=== PATIENT | female | born 1995 | race Caucasian/White ===

== ENCOUNTER 2024-01-02 16:24 | Emergency (ER) | payer BC, MEDICAID, SELFPAY ==
[2024-01-02 16:44] VITALS: BP 116/77; PULSE 113; RESP 16; TEMP 39.3; O2SAT 96; BMI 25.6
[2024-01-02 18:13] LABS: Basophils % 0.1 %; Eosinophils % 0.1 %; Hematocrit 41.1 % (36-47); Lymphocytes # 0.6 10^3/uL (0.8-4.8); Lymphocytes % 6.3 %; Mean Corpuscular HGB Conc 32.8 g/dL (30-55); Mean Corpuscular Hemoglobin 31.5 pg (27-33); Mean Platelet Volume 9.9 fL (7.4-10.4); Monocytes # 0.6 10^3/uL (0.2-0.9); Monocytes % 6.4 %; Neutrophils # 8.26 10^3/uL (1.8-7.7); Neutrophils % 86.8 %; Nucleated Red Blood Cells % 0 %; Platelet Count 142 10^3/cmm (157-399); Red Blood Count 4.28 10^6/uL (3.85-5.65); Red Cell Distribution Width 13.2 % (12.1-15.1); White Blood Count 9.52 10^3/uL (3.29-11.43)
--- NOTE | 2024-01-02 18:34 | ED_ITS ---
HPI - General Adult 2 General: Chief complaint: General Medical Stated complaint: F,h,chillis Time Seen by Provider: 01/02/24 18:26 History of Present Illness: Patient is a headache do not go away, fever chills hot flashes, kidney pain low back pain frequency with urination, denies any pain in her mouth however she did have a tooth pulled approximately 1 week ago which she said the tooth and jaw is not giving her any problems. Patient has been alternating Tylenol and ibuprofen. Patient arrived with a pulse of 113 and a temperature 102.8. Patient says she just feels bad all over. Related Data Previous Rx's Medication Instructions Recorded ciprofloxacin HCl 500 mg tablet 500 mg PO Q12H #20 tabs 01/02/24 Allergies Allergy/AdvReac Type Severity Reaction Status Date / Time No Known Allergies Allergy Verified 01/02/24 16:51 Review of Systems 2 General: Reports: 10 or more systems reviewed and unremarkable except in HPI and below [facility] 2 Female Reproductive History: Date of last menstrual period: 12/22/23 Physical Exam 2 Const: COMMON NORMALS: no acute distress, average body habitus, patient oriented x3, no limitations, healthy appearing, alert and well nourished HENMT: COMMON NORMALS: normocephalic, atraumatic, hearing grossly normal bilaterally, external ears normal, Normal external nose present and moist oral mucous membranes HEAD & SCALP: normocephalic and atraumatic NOSE: Normal external nose present EXTERNAL EAR: Yes external ears normal Neck/C-Spine: COMMON NORMALS: full ROM, no lymphadenopathy, supple, no meningeal signs, no JVD and Thyroid normal THYROID: Thyroid normal Chest: COMMONS NORMALS: normal inspection of the chest and normal palpation of entire chest wall Resp: COMMON NORMALS: normal respiratory effort, No retractions, No use of accessory muscles and clear to auscultation bilaterally AUSCULTATION: clear to auscultation bilaterally Cardio: COMMON NORMALS: no JVD, regular rate, regular rhythm, S1 normal heart sound present, S2 normal heart sound present, No gallops present (Cardio), No clicks present (Cardio), No murmurs present (Cardio) and No rub (Cardio) R ATE: regular rate RHYTHM: regular rhythm HEART SOUNDS: S1 normal heart sound present and S2 normal heart sound present GI: COMMON NORMALS: Normal to inspection, nondistended, normoactive bowel sounds present, Soft to palpation, non-tender, No hepatosplenomegaly present and no masses PALPATION: Yes Soft to palpation and Yes No hepatosplenomegaly present Neuro: COMMON NORMALS: patient oriented x3 SENSORIUM/ORIENTATION: Yes alert MENINGEAL SIGNS: Yes no meningeal signs Course 2 Vital Signs: Vital signs: Vital Signs Temperature 102.8 F H 01/02/24 16:44 Pulse Rate 113 H 01/02/24 16:44 Respiratory Rate 16 01/02/24 16:44 Blood Pressure 110/72 01/02/24 18:57 Pulse Oximetry 95 01/02/24 18:57 Oxygen Delivery Me thod Room Air 01/02/24 16:44 MDM - General Adult Medical Decision Making Patient lab work that revealed a urinary tract infection, patient was given Toradol, [place], Cipro will be discharged home on Cipro. Patient is to follow-up with her PCP within 7 days. Medical Records I reviewed the patient's medical records. Lab Data I reviewed the patient's lab results. 01/02/24 17:56 01/02/24 17:56 Laboratory Results WBC 9.52 10^3/uL (3.29-11.43) 01/02/24 17:56 RBC 4.28 10^6/uL (3.85-5.65) 01/02/24 17:56 Hgb 13.50 g/dL (11.27-16.99) 01/02/24 17:56 Hct 41.1 % (36-47) 01/02/24 17:56 MCV 96.0 fl (85-98) 01/02/24 17:56 MCH 31.5 pg (27-33) 01/02/24 17:56 MCHC 32.8 g/dL (30-55) 01/02/24 17:56 RDW 13.2 % (12.1-15.1) 01/02/24 17:56 Plt Count 142 10^3/cmm (157-399) L 01/02/24 17:56 MPV 9.9 fL (7.4-10.4) 01/02/24 17:56 Neut % (Auto) 86.8 % 01/02/24 17:56 Lymph % (Auto) 6.3 % 01/02/24 17:56 [place] % (Auto) 6.4 % 01/02/24 17:56 Eos % (Auto) 0.1 % 01/02/24 17:56 Baso % (Auto) 0.1 % 01/02/24 17:56 Neut # (Auto) 8.26 10^3/uL (1.8-7.7) H 01/02/24 17:56 Lymph # (Auto) 0.6 10^3/uL (0.8-4.8) L 01/02/24 17:56 [place] # (Auto) 0.6 10^3/uL (0.2-0.9) 01/02/24 17:56 Eos # (Auto) 0.0 10^3/uL (0.0-0.8) 01/02/24 17:56 Baso # (Auto) 0.0 10^3/uL (0.0-0.1) 01/02/24 17:56 Nucleated RBC % (auto) 0 % 01/02/24 17:56 Nucleated RBCs # 0.0 /100WBC 01/02/24 17:56 Sodium 132 mmol/L (136-145) L 01/02/24 17:56 Potassium 4.1 mmol/L (3.5-5.1) 01/02/24 17:56 Chloride 98 mmol/L (98-107) 01/02/24 17:56 Carbon Dioxide 24 mmol/L (22-29) 01/02/24 17:56 Anion Gap 14.1 (5-19) 01/02/24 17:56 BUN 9 mg/dL (6-20) 01/02/24 17:56 Creatinine 0.7 mg/dL (0.5-0.9) 01/02/24 17:56 GFR Calculation 98.3 mL/min (90-130) 01/02/24 17:56 Glucose 105 mg/dL (65-115) 01/02/24 17:56 Calculated Osmolality 273 mOsm/kg (285-295) L 01/02/24 17:56 Calcium 8.8 mg/dL (8.5-10.5) 01/02/24 17:56 Total Bilirubin 0.6 mg/dL (0.15-1.2) 01/02/24 17:56 AST 27 U/L (0-32) 01/02/24 17:56 ALT 35 U/L (0-33) H 01/02/24 17:56 Alkaline Phosphatase 117 U/L (35-105) H 01/02/24 17:56 Total Protein 7.3 g/dL (6.6-8.7) 01/02/24 17:56 Albumin 4.2 g/dL (3.5-5.2) 01/02/24 17:56 Globulin 3.1 g/dL (1.3-4.6) 01/02/24 17:56 Urine Color [place] (Yellow) A 01/02/24 18:52 Urine Appearance Turbid (CLEAR) A 01/02/24 18:52 Urine pH 5.5 (5-7) 01/02/24 18:52 Ur Specific [place] 1.016 (1.005-1.030) 01/02/24 18:52 Urine Protein 2+ (Negative) A 01/02/24 18:52 Urine Glucose (UA) Negative (Normal) 01/02/24 18:52 Urine Ketones 2+ (Negative) H 01/02/24 18:52 Urine Blood 2+ (Negative) A 01/02/24 18:52 Urine Nitrate Positive (Negative) A 01/02/24 18:52 Urine Bilirubin 1+ (Negative) H 01/02/24 18:52 Urine Urobilinogen 1.0 mg/dL (Negative) 01/02/24 18:52 Ur Leukocyte Esterase 3+ (Negative) A 01/02/24 18:52 Urine RBC 6-10 /hpf (0-2) 01/02/24 18:52 Urine WBC >100 /hpf (0-5) H 01/02/24 18:52 Ur Squamous Epith Cells 11-20 /hpf (0-5) 01/02/24 18:52 Amorphous Sediment Not Reportable 01/02/24 18:52 Urine Bacteria 4+ /hpf (NONE) H 01/02/24 18:52 Hyaline Casts 4.52 /lpf 01/02/24 18:52 Coronavirus (PCR) Negative (Negative) 01/02/24 18:02 Influenza A (PCR) Negative (Negative) 01/02/24 18:02 Influenza Type B (PCR) Negative (Negative) 01/02/24 18:02 RSV (PCR) Negative (Negative) 01/02/24 18:02 No radiology studies performed this visit Discharge Plan Discharge Patient Disposition: Home Clinical Impression: Infection, kidney Condition: Stable Prescriptions: New ciprofloxacin HCl 500 mg tablet 500 mg PO Q12H Qty: 20 0RF Discharge Orders: Discharge ED (Routine); Ordered 01/02/24 Ordered By: Edgar Garzon Patient Instructions: Kidney Infection (ED) Activity Restrictions/Additional Instructions: Your evaluation ER showed you have a kidney infection. You were given Cipro antibiotics in the ER and a prescription of these was sent to your pharmacy. Please fill this prescription and take these as directed. Please follow-up with your family practice physician within the next 7 days for further evaluation and treatment. Coding Level of Care Code ED [employer] for Hector Bueno
[2024-01-02 18:38] LABS: Alanine Aminotransferase 35 U/L (0-33); Albumin Level 4.2 g/dL (3.5-5.2); Alkaline Phosphatase 117 U/L (35-105); Blood Urea Nitrogen 9 mg/dL (6-20); Calcium 8.8 mg/dL (8.5-10.5); Carbon Dioxide 24 mmol/L (22-29); Chloride 98 mmol/L (98-107); Creatinine Clr Calc Pharmacy 102.8893; Globulin 3.1 g/dL (1.3-4.6); Glomerular Filtration Rate 98.3 mL/min (90-130); Glucose 105 mg/dL (65-115); Osmolality Calculated 273 mOsm/kg (285-295); Sodium 132 mmol/L (136-145); Total Bilirubin 0.6 mg/dL (0.15-1.2); Total Protein 7.3 g/dL (6.6-8.7)
[2024-01-02 18:43] LABS: Anion Gap 14.1 (5-19); Aspartate Amino Transferase 27 U/L (0-32); Potassium 4.1 mmol/L (3.5-5.1)
[2024-01-02 18:57] VITALS: BP 110/72; O2SAT 95
[2024-01-02] MEDS: ketorolac 10 mg Tablet PO (19:03)
[2024-01-02] MEDS: HYDROcodone-acetaminophen 5-325 mg Tablet 1 TAB PO (19:03)
[2024-01-02 19:14] LABS: Bilirubin Urine 1+ (Negative); Blood Urine 2+ (Negative); Glucose Urine UA Negative (Normal); Ketones Urine 2+ (Negative); Leukocyte Esterase Urine 3+ (Negative); Nitrate Urine Positive (Negative); Protein Urine 2+ (Negative); Specific Gravity, Urine 1.016 (1.005-1.030); Urine Appearance Turbid (CLEAR); pH Urine 5.5 (5-7)
[2024-01-02 19:16] LABS: Add Urine Microscopic? YES; Bacteria Urine 4+ /hpf; Hyaline Casts Urine 4.52 /lpf; Universal Test for UA Present (0); WBC Urine >100 /hpf (0-5)
[2024-01-02 19:32] LABS: Add Urine Culture? No; Urine Color Orange (Yellow)
[2024-01-02 19:50] LABS: Covid PCR NEGATIVE (Negative); Influenza A NEGATIVE (Negative); Influenza B NEGATIVE (Negative); Respiratory Syncytial Virus Ce NEGATIVE (Negative)
[2024-01-02] MEDS: ciprofloxacin 500 mg Tablet PO (20:13)
[2024-01-02 20:38] VITALS: BP 100/59; PULSE 96; RESP 16; RESP 18; O2SAT 98
== END 2024-01-02 20:40 | disposition home or self-care (01) ==
PROVIDERS: Family Medicine; Emergency Provider Emergency Medicine
DX: N15.9 Renal tubulo-interstitial disease, unspecified (principal); Z11.52 Encounter for screening for COVID-19
CPT/HCPCS: 0241U; 36415; 80053; 81001; 85025; 99283

== ENCOUNTER 2024-01-04 02:17 | Emergency (ER) | payer BC, MEDICAID, SELFPAY ==
[2024-01-04 02:22] VITALS: BP 110/78; PULSE 89; RESP 16; TEMP 36.8; O2SAT 99; BMI 26.4
--- NOTE | 2024-01-04 02:55 | CTR_ITS ---
PROCEDURE INFORMATION: Exam: CT Head Without Contrast Exam date and time: 01/04/2024 3:17 AM Age: 28 years old Clinical indication: Pain; Headache TECHNIQUE: Imaging protocol: Computed tomography of the head without contrast. Radiation optimization: All CT scans at this facility use at least one of these dose optimization techniques: automated exposure control; mA and/or kV adjustment per patient size (includes targeted exams where dose is matched to clinical indication); or iterative reconstruction. COMPARISON: No relevant prior studies available. RADIATION DOSE METRICS: Total DLP (mGy-cm): 296 FINDINGS: Brain: No acute intracranial hemorrhage or mass effect. No definite acute infarct by CT. Cerebral ventricles: Ventricle size is normal for age. Paranasal sinuses: Included paranasal sinuses are essentially clear. Mastoid air cells: No significant acute finding. Bones: No definite acute skull fracture. Soft tissues: No significant acute finding. CT/CT head wo con* [id number] IMPRESSION: 1. No acute intracranial hemorrhage or mass effect. 2. Other findings discussed above.
--- NOTE | 2024-01-04 02:56 | CTR_ITS ---
PROCEDURE INFORMATION: Exam: CT Abdomen And Pelvis Without Contrast Exam date and time: 01/04/2024 3:21 AM Age: 28 years old Clinical indication: Abdominal pain; Prior surgery; Surgery date: 6+ months; Surgery type: Choley, tubal; Additional info: R flank pain , UTI TECHNIQUE: Imaging protocol: Computed tomography of the abdomen and pelvis without contrast. Radiation optimization: All CT scans at this facility use at least one of these dose optimization techniques: automated exposure control; mA and/or kV adjustment per patient size (includes targeted exams where dose is matched to clinical indication); or iterative reconstruction. COMPARISON: No relevant prior studies available. RADIATION DOSE METRICS: Total DLP (mGy-cm): 391.36 FINDINGS: Liver: Normal. No mass. Gallbladder and biliary ducts: Status post cholecystectomy. Pancreas: Normal. No ductal dilation. Spleen: Normal. No splenomegaly. Adrenal glands: Normal. No mass. Kidneys and ureters: Faint hyperattenuation seen within the renal medullary pyramids, findings compatible benign renal medullary pyramid white sign. Mild medullary nephrocalcinosis cannot entirely. Stomach and bowel: Unremarkable. No obstruction. No mucosal thickening. Appendix: No evidence of appendicitis. Intraperitoneal space: Unremarkable. No free air. No significant fluid collection. Vasculature: Unremarkable. No abdominal aortic aneurysm. Lymph nodes: Unremarkable. No enlarged lymph nodes. Urinary bladder: Unremarkable as visualized. Reproductive: Unremarkable as visualized. Bones/joints: Unremarkable. No acute fracture. Soft tissues: Hazy opacities present in the right perinephric fascia, findings that represent inflammatory changes and pyelonephritis. Other findings: Tiny volume of low-attenuation fluid is seen in the dependent portions pelvis likely commensurate patient's age and menstrual status. CT/CT kidney stone 21302 IMPRESSION: 1. Hazy opacities are seen in the right perinephric fascia, finding that may represent inflammatory changes and pyelonephritis. 2. Subtle hyperattenuation renal medullary pyramids bilaterally most probably represents a benign renal medullary pyramid white sign. Mild renal medullary nephrocalcinosis cannot be entirely excluded. 3. Tiny volume fluid in the cul-de-sac likely commensurate patient's age and menstrual status.
[2024-01-04 03:02] LABS: Basophils % 0.2 %; Eosinophils # 0.1 10^3/uL (0.0-0.8); Eosinophils % 1.1 %; Hematocrit 39.9 % (36-47); Lymphocytes # 0.9 10^3/uL (0.8-4.8); Lymphocytes % 6.8 %; Mean Corpuscular HGB Conc 32.6 g/dL (30-55); Mean Corpuscular Hemoglobin 31.4 pg (27-33); Mean Corpuscular Volume 96.4 fl (85-98); Mean Platelet Volume 9.7 fL (7.4-10.4); Monocytes # 1.4 10^3/uL (0.2-0.9); Monocytes % 10.5 %; Neutrophils # 10.61 10^3/uL (1.8-7.7); Neutrophils % 81.1 %; Nucleated Red Blood Cells % 0 %; Platelet Count 135 10^3/cmm (157-399); Red Blood Count 4.14 10^6/uL (3.85-5.65); Red Cell Distribution Width 13.3 % (12.1-15.1); White Blood Count 13.08 10^3/uL (3.29-11.43)
[2024-01-04 03:09] LABS: HCG, Serum Qual Negative (Negative)
[2024-01-04 03:14] LABS: Alanine Aminotransferase 32 U/L (0-33); Albumin Level 3.9 g/dL (3.5-5.2); Alkaline Phosphatase 145 U/L (35-105); Anion Gap 15.7 (5-19); Aspartate Amino Transferase 22 U/L (0-32); Blood Urea Nitrogen 11 mg/dL (6-20); C Reactive Protein 315.3 mg/L (0.0-4.9); Calcium 9.1 mg/dL (8.5-10.5); Carbon Dioxide 22 mmol/L (22-29); Chloride 100 mmol/L (98-107); Creatinine Clr Calc Pharmacy 87.7881; Globulin 3.6 g/dL (1.3-4.6); Glomerular Filtration Rate 84.2 mL/min (90-130); Glucose 101 mg/dL (65-115); Lipase 16 U/L (13-60); Magnesium 2.1 mg/dL (1.7-2.3); Osmolality Calculated 278 mOsm/kg (285-295); Potassium 3.7 mmol/L (3.5-5.1); Sodium 134 mmol/L (136-145); Total Bilirubin 0.9 mg/dL (0.15-1.2); Total Protein 7.5 g/dL (6.6-8.7)
[2024-01-04 03:15] LABS: Lactic Sepsis W/Reflex 0.9 mmol/L (0.5-2.2)
[2024-01-04] MEDS: ondansetron 2 mg/ML SDV 2 mL 4 MG IVP (03:17)
[2024-01-04] MEDS: cefTRIAXone 1,000 mg SDV 1000 MG IVP (03:17)
[2024-01-04] MEDS: ketorolac 30 mg/mL INJ IVP (03:18)
[2024-01-04] MEDS: morphine 4 mg/mL SDV 1 mL IVP ×2 (03:18→04:38)
[2024-01-04] MEDS: sodium chloride 0.9% 1,000 ML 999 ML IV ×2 (03:18→04:38)
[2024-01-04 04:05] VITALS: BP 104/57; PULSE 78; O2SAT 96
[2024-01-04 04:46] LABS: Bilirubin Urine 1+ (Negative); Blood Urine Trace (Negative); Glucose Urine UA Negative (Normal); Ketones Urine 3+ (Negative); Leukocyte Esterase Urine 2+ (Negative); Nitrate Urine Negative (Negative); Protein Urine 2+ (Negative); Specific Gravity, Urine 1.023 (1.005-1.030); Urine Appearance Cloudy (CLEAR); Urine Color Dark Yellow (Yellow); pH Urine 5.5 (5-7)
--- NOTE | 2024-01-04 04:50 | ED_ITS ---
HPI - Headache 2 General: Chief Complaint: Headache Stated Complaint: severe headache 4 days+ Time Seen by Provider: 01/04/24 02:42 History of Present Illness: 28-year-old female seen yesterday for fl ank pain. She was diagnosed with pyelonephritis, and has been on antibiotics. She comes in complaining of headache, continued right flank pain, and significant nausea. She has not been able to drink much fluid, or eat anything. She says this is the worst headache she has ever had. Related Data Previous Rx's Medication Instructions Recorded ciprofloxacin HCl 500 mg tablet 500 mg PO Q12H #20 tabs 01/02/24 hydrocodone 5 mg-acetaminophen 325 1 tab PO Q8H PRN pain #7 tabs 01/04/24 mg tablet ketorolac 10 mg tablet 10 mg PO TID PRN pain #10 tabs 01/04/24 ondansetron 4 mg disintegrating 4 mg PO Q6H PRN nausea and 01/04/24 tablet vomiting #14 tabs Allergies Allergy/AdvReac Type Severity Reaction Status Date / Time No Known Allergies Allergy Verified 01/02/24 16:51 Physical Exam 2 Const: GENERAL APPEARANCE: cooperative and ill appearing (Mildly); not frail appearing HENMT: COMMON NORMALS: normocephalic, atraumatic and Normal external nose present HEAD & SCALP: normocephalic and atraumatic FACE & SINUS: normal facial exam and face symmetric NOSE: Normal external nose present Eye: COMMON NORMALS: Equal, round and reactive pupils present and EOMs intact bilaterally PUPIL: Yes Equal, round and reactive pupils present Neck/C-Spine: GENERAL: Yes trachea midline Chest: CHEST: Yes Symmetrical chest wall rise Resp: COMMON NORMALS: normal respiratory effort, No retractions, No use of accessory muscles and clear to auscultation bilaterally AUSCULTATION: clear to auscultation bilaterally Cardio: COMMON NORMALS: regular rate and regular rhythm RATE: regular rate RHYTHM: regular rhythm GI: COMMON NORMALS: Normal to inspection, nondistended, normoactive bowel sounds present : BLADDER/KIDNEY EXAM: Yes CVA tenderness on the right Back/Pelvis: GENERAL BACK: Yes CVA tenderness Extremity: COMMON NORMALS: no pedal edema Neuro: GUERO COMA SCALE: document GCS findings Guero coma scale eye opening: Spontaneous [place] coma scale verbal response: Orientated Guero coma scale motor response: Obey commands [place] coma scale total score: 15 S ENSORY EXAM: Yes extremities (intact) Psych: COMMON NORMALS: speech normal SPEECH: Yes normal speech Skin: COMMON NORMALS: no rashes or lesions noted GENERAL SKIN EXAM: no rashes or lesions noted Course 2 Vital Signs: Vital signs: Vital Signs Temperature 98.3 F 01/04/24 02:22 Pulse Rate 86 01/04/24 05:19 Respiratory Rate 16 01/04/24 02:22 Blood Pressure 104/54 01/04/24 05:19 Pulse Oximetry 97 01/04/24 05:19 Oxygen Delivery Me thod Room Air 01/04/24 02:22 MDM - Headache Medical Decision Making White blood cell count is up to 13. CRP is 315 which is impressive. Platelet count 135. Lactic acid is 0.9. Lipase is normal. Urinalysis is slightly improved from yesterday. She has received 2 L of IV fluid here, 1 g of Rocephin. Morphine and Toradol. Zofran. She is feeling improved. Head CT is negative. Abdominal CT shows hazy opacities in the right perinephric fascia representing inflammatory changes and pyelonephritis. Her creatinine is 0.8. With improvement in her symptoms, she will be allowed discharge. She will continue her antibiotics, and we will give her symptom control medication with antiemetics, and pain medication. She is encouraged to hydrate orally. Lab Data 01/04/24 02:55 01/04/24 02:[address] 01/04/24 02:55 IMPRESSION: 1. No acute intracranial hemorrhage or mass effect. 2. Other findings discussed above. Abdomen/Pelvis CT 01/04/24 02:56 IMPRESSION: 1. Hazy opacities are seen in the right perinephric fascia, finding that may represent inflammatory changes and pyelonephritis. 2. Subtle hyperattenuation renal medullary pyramids bilaterally most probably represents a benign renal medullary pyramid white sign. Mild renal medullary nephrocalcinosis cannot be entirely excluded. 3. Tiny volume fluid in the cul-de-sac likely commensurate patient's age and menstrual status. Laboratory Results WBC 13.08 10^3/uL (3.29-11.43) H 01/04/24 02:55 RBC 4.14 10^6/uL (3.85-5.65) 01/04/24 02:55 Hgb 13.00 g/dL (11.27-16.99) 01/04/24 02:55 Hct 39.9 % (36-47) 01/04/24 02:55 MCV 96.4 fl (85-98) 01/04/24 02:55 MCH 31.4 pg (27-33) 01/04/24 02:55 MCHC 32.6 g/dL (30-55) 01/04/24 02:55 RDW 13.3 % (12.1-15.1) 01/04/24 02:55 Plt Count 135 10^3/cmm (157-399) L 01/04/24 02:55 MPV 9.7 fL (7.4-10.4) 01/04/24 02:55 Neut % (Auto) 81.1 % 01/04/24 02:55 Lymph % (Auto) 6.8 % 01/04/24 02:55 [place] % (Auto) 10.5 % 01/04/24 02:55 Eos % (Auto) 1.1 % 01/04/24 02:55 Baso % (Auto) 0.2 % 01/04/24 02:55 Neut # (Auto) 10.61 10^3/uL (1.8-7.7) H 01/04/24 02:55 Lymph # (Auto) 0.9 10^3/uL (0.8-4.8) 01/04/24 02:55 [place] # (Auto) 1.4 10^3/uL (0.2-0.9) H 01/04/24 02:55 Eos # (Auto) 0.1 10^3/uL (0.0-0.8) 01/04/24 02:55 Baso # (Auto) 0.0 10^3/uL (0.0-0.1) 01/04/24 02:55 Nucleated RBC % (auto) 0 % 01/04/24 02:55 Nucleated RBCs # 0.0 /100WBC 01/04/24 02:55 Sodium 134 mmol/L (136-145) L 01/04/24 02:55 Potassium 3.7 mmol/L (3.5-5.1) 01/04/24 02:55 Chloride 100 mmol/L (98-107) 01/04/24 02:55 Carbon Dioxide 22 mmol/L (22-29) 01/04/24 02:55 Anion Gap 15.7 (5-19) 01/04/24 02:55 BUN 11 mg/dL (6-20) 01/04/24 02:55 Creatinine 0.8 mg/dL (0.5-0.9) 01/04/24 02:55 GFR Calculation 84.2 mL/min (90-130) L 01/04/24 02:55 Glucose 101 mg/dL (65-115) 01/04/24 02:55 Calculated Osmolality 278 mOsm/kg (285-295) L 01/04/24 02:55 Lactic Acid 0.9 mmol/L (0.5-2.2) 01/04/24 02:55 Calcium 9.1 mg/dL (8.5-10.5) 01/04/24 02:55 Magnesium 2.1 mg/dL (1.7-2.3) 01/04/24 02:55 Total Bilirubin 0.9 mg/dL (0.15-1.2) 01/04/24 02:55 AST 22 U/L (0-32) 01/04/24 02:55 ALT 32 U/L (0-33) 01/04/24 02:55 Alkaline Phosphatase 145 U/L (35-105) H 01/04/24 02:55 C-Reactive Protein 315.3 mg/L (0.0-4.9) H 01/04/24 02:55 Total Protein 7.5 g/dL (6.6-8.7) 01/04/24 02:55 Albumin 3.9 g/dL (3.5-5.2) 01/04/24 02:55 Globulin 3.6 g/dL (1.3-4.6) 01/04/24 02:55 Lipase 16 U/L (13-60) 01/04/24 02:55 HCG, Qual Negative (Negative) 01/04/24 02:55 Urine Color Dark yellow (Yellow) A 01/04/24 04:30 Urine Appearance Cloudy (CLEAR) A 01/04/24 04:30 Urine pH 5.5 (5-7) 01/04/24 04:30 Ur Specific [place] 1.023 (1.005-1.030) 01/04/24 04:30 Urine Protein 2+ (Negative) A 01/04/24 04:30 Urine Glucose (UA) Negative (Normal) 01/04/24 04:30 Urine Ketones 3+ (Negative) H 01/04/24 04:30 Urine Blood Trace (Negative) A 01/04/24 04:30 Urine Nitrate Negative (Negative) 01/04/24 04:30 Urine Bilirubin 1+ (Negative) H 01/04/24 04:30 Urine Urobilinogen 4.0 mg/dL (Negative) H 01/04/24 04:30 Ur Leukocyte Esterase 2+ (Negative) A 01/04/24 04:30 Urine RBC 6-10 /hpf (0-2) 01/04/24 04:30 Urine WBC 51-100 /hpf (0-5) H 01/04/24 04:30 Ur Squamous Epith Cells 21-50 /hpf (0-5) 01/04/24 04:30 Amorphous Sediment Not Reportable 01/04/24 04:30 Urine Bacteria 4+ /hpf (NONE) H 01/04/24 04:30 Hyaline Casts 3.30 /lpf 01/04/24 04:30 All radiology interpretation(s) finalized by discharge Discharge Plan Discharge Patient Disposition: Home Clinical Impression: Pyelonephritis, Headache Condition: Stable Prescriptions: New hydrocodone-acetaminophen 5-325 mg tablet 1 tab PO Q8H PRN (Reason: pain) Qty: 7 0RF ketorolac 10 mg tablet 10 mg PO TID PRN (Reason: pain) Qty: 10 0RF ondansetron 4 mg tablet,disintegrating 4 mg PO Q6H PRN (Reason: nausea and vomiting) Qty: 14 0RF No Action ciprofloxacin HCl 500 mg tablet 500 mg PO Q12H Qty: 20 0RF Discharge Orders: Discharge ED (Routine); Ordered 01/04/24 Ordered By: Abdullahi Rico Patient Instructions: Kidney Infection (ED), Acute Headache (ED), Opioid Safety, Pain Management Activity Restrictions/Additional Instructions: Take nausea medication (Zofran) scheduled every 4 hours while awake for the first 24 hours, then you may take it as you needed following that. You may alternate prescribed pain medication for discomfort. Continue your antibiotic. Aggressively hydrate by drinking fluids for the next 48 hours. Return for worsening pain despite treatment, fever despite antibiotics, vomiting liquids or medications, any other concerning symptoms. Stand Alone Forms: Work/School Release Coding Level of Care Code ED Engagement Executive for Hector Bueno
[2024-01-04 04:51] LABS: Add Urine Microscopic? YES; Bacteria Urine 4+ /hpf; Squamous Epithelial Cell Urine 21-50 /hpf (0-5); WBC Urine 51-100 /hpf (0-5)
[2024-01-04 04:52] LABS: Add Urine Culture? No
[2024-01-04 05:04] VITALS: BP 104/57; PULSE 70; O2SAT 98
[2024-01-04 05:19] VITALS: BP 104/54; PULSE 86; O2SAT 97
== END 2024-01-04 05:20 | disposition home or self-care (01) ==
PROVIDERS: Emergency Provider Emergency Medicine
DX: R51.9 Headache, unspecified (principal); N12 Tubulo-interstitial nephritis, not specified as acute or chronic
CPT/HCPCS: 70450; 74176; 80053; 81001; 83605; 83690; 83735; 84703; 85025; 86140; 96361; 96374; 96375; 96376; 99285; J0696; J1885; J2270; J2405; J7030

== ENCOUNTER 2024-07-11 17:50 | Emergency (ER) | payer BC, MEDICAID, SELFPAY ==
[2024-07-11 18:14] VITALS: BP 121/83; PULSE 82; RESP 14; TEMP 36.8; O2SAT 99; BMI 27.1
--- NOTE | 2024-07-11 18:29 | W.ED.DENTAL ---
HPI - Dental/Oral General: Chief complaint: Dental/Oral Stated complaint: Tooth Ache Time Seen by Provider: 07/11/24 18:06 Source: patient Mode of arrival: ambulatory Limitations: no limitations History of Present Illness: 29-year-old female who states has been having dental pain over the last few days has a history of poor dentition states she is seen in the walk-in clinic earlier was given antibiotics but she continued to have pain left lower molar states pain sharp in nature rates an 8 out of 10 denies difficulty swallowing. She denies any fevers Associated symptoms: Denies fever(s) Related Data Previous Rx's ?Medication ?Instructions ?Recorded ciprofloxacin HCl 500 mg tablet 500 mg PO Q12H #20 tabs 01/02/24 hydrocodone 5 mg-acetaminophen 325 1 tab PO Q8H PRN pain #7 tabs 01/04/24 mg tablet ketorolac 10 mg tablet 10 mg PO TID PRN pain #10 tabs 01/04/24 ondansetron 4 mg disintegrating 4 mg PO Q6H PRN nausea and 01/04/24 tablet vomiting #14 tabs Allergies Allergy/AdvReac Type Severity Reaction Status Date / Time No Known Allergies Allergy Verified 07/11/24 18:17 Review of Systems Const: Denies: fever(s), chills, body aches or change in appetite ENMT: Reports: dental pain; Denies: throat pain Card: Denies: chest pain Resp: Denies: dyspnea GI: Denies: abdominal pain, nausea, vomiting or diarrhea Musc: Denies: neck pain or back pain Skin/Breast: Denies: rash Neuro: Denies: headache(s) [facility] ED Female Reproductive History: Date of last menstrual period: 07/04/24 Physical Exam Const: COMMON NORMALS: no acute distress, patient oriented x3 and healthy appearing HENMT: COMMON NORMALS: normocephalic and atraumatic HEAD & SCALP: normocephalic and atraumatic OTHER: Tenderness to left lower molar very poor dentition no trismus or abscess Eye: COMMON NORMALS: conjunctivae normal CONJUNCTIVA: Yes conjunctivae normal Neck/C-Spine: COMMON NORMALS: full ROM and supple Chest: COMMONS NORMALS: normal inspection of the chest Resp: COMMON NORMALS: normal respiratory effort, No retractions, No use of accessory muscles and clear to auscultation bilaterally AUSCULTATION: clear to auscultation bilaterally Cardio: COMMON NORMALS: regular rate RATE: regular rate Extremity: COMMON NORMALS: normal to inspection and full ROM Neuro: COMMON NORMALS: patient oriented x3, moves all extremities and no focal motor deficits Psych: COMMON NORMALS: mental status grossly normal, Normal thought process present and cooperative THOUGHT PROCESS: Normal thought process present Skin: COMMON NORMALS: no rashes or lesions noted and no wounds GENERAL SKIN EXAM: no rashes or lesions noted Procedures Nerve Block Nerve Block 1: Time out performed: Yes Local Anesthetic: bupivacaine 0.5% Amount of anesthesia used (mL): 10 Side: left Intraoral Nerve Block: inferior alveolar Course Vital Signs: Vital signs: Vital Signs Temperature 98.2 F 07/11/24 18:14 Pulse Rate 82 07/11/24 18:14 Respiratory Rate 14 07/11/24 18:14 Blood Pressure 121/83 07/11/24 18:14 Pulse Oximetry 99 07/11/24 18:14 Oxygen Delivery Me thod Room Air 07/11/24 18:14 MDM - Dental/Oral Medical Decision Making Patient presents with dental pain her pain is much improved here after dental block she is already on antibiotics she is to follow-up with a dentist return if worsening. Medical Records I reviewed the patient's medical records. No radiology studies performed this visit Discharge Plan Discharge Patient Disposition: Home Clinical Impression: Pain, dental Condition: Stable Prescriptions: No Action ciprofloxacin HCl 500 mg tablet 500 mg PO Q12H Qty: 20 0RF hydrocodone-acetaminophen 5-325 mg tablet 1 tab PO Q8H PRN (Reason: pain) Qty: 7 0RF ketorolac 10 mg tablet 10 mg PO TID PRN (Reason: pain) Qty: 10 0RF ondansetron 4 mg tablet,disintegrating 4 mg PO Q6H PRN (Reason: nausea and vomiting) Qty: 14 0RF Discharge Orders: Discharge ED (Routine); Ordered 07/11/24 Ordered By: Dong Georges Referrals: Christiano Rodrigues MD [Primary Care Provider] - Discharge Diet: Advance as tolerated Discharge Activity: Resume usual activity Patient Instructions: Toothache (ED) Print Language: Swedish Coding Level of Care Code ED Clothing Patternmaker for Hector Bueno
[2024-07-11] MEDS: BUPivacaine 0.5% INJ 10 mL INJECTION ×2 (18:44→19:13)
[2024-07-11] MEDS: HYDROcodone-acetaminophen 7.5-325 mg Tablet 1 TAB PO (18:44)
== END 2024-07-11 19:40 | disposition home or self-care (01) ==
PROVIDERS: Emergency Provider Emergency Medicine; PCP Family Medicine
DX: K08.89 Other specified disorders of teeth and supporting structures (principal)
CPT/HCPCS: 99284; J3490; J9999